=== PATIENT | female | born 1980 | race Two or more races ===

== ENCOUNTER 2023-05-20 07:16 | Outpatient (CLI) | payer OTHER | END 2023-05-20 07:18 | disposition home or self-care (01) | LOC: LAB 07:16 | DX: E16.2 Hypoglycemia, unspecified (principal) ==

== ENCOUNTER 2023-05-20 08:05 | Outpatient (CLI) | payer OTHER | END 2023-05-20 08:15 | disposition home or self-care (01) | LOC: SONOGRAMA 08:05 | PROVIDERS: ATTEND Obstetrics & Gynecology | DX: R10.13 Epigastric pain (principal) ==

== ENCOUNTER 2023-09-02 06:44 | Outpatient (CLI) | payer OTHER ==
[2023-09-02 08:00] LABS: HEMATOCRIT 42.1 % (36.0-45.00); MEAN CELL VOLUME 91.7 fL (80.00-100.00); MEAN CORPUSCULAR HEMOGLOBIN 30.6 pg (27.00-32.0); MEAN CORPUSCULAR HGB CONC 33.3 g/dl (32.0-36.0); PLATELET COUNT 254 K/uL (150-450); RED BLOOD COUNT 4.59 M/uL (4.00-6.00); RED CELL DISTRIBUTION WIDTH 12.5 % (11.5-14.5)
[2023-09-02 08:03] LABS: URINE APPEARANCE Clear; URINE BILIRRUBIN Negative (NEGATIVE); URINE BLOOD Negative; URINE COLOR Yellow; URINE GLUCOSE Negative (NEGATIVE); URINE LEUKOCYTE Negative; URINE NITRATE Negative; URINE PROTEIN Negative (NEGATIVE); URINE UROBILINOGEN 0.2 E.U./dl
[2023-09-02 08:04] LABS: URINE BACTERIA 11.3 uL (0.0-1933); URINE EPITHELIAL CELLS 1.9 uL (0.0-38.8); URINE RBC 4.4 uL (0.0-20.8)
[2023-09-02 08:22] LABS: INR 0.95; PARTIAL THROMBOPLASTIN TIME 27.1 SECONDS (22.0-34.0)
[2023-09-02 08:26] LABS: ALBUMIN 3.3 gm/dL (3.4-5.0); BILIRUBIN TOTAL 0.52 mg/dL (0.3-1.2); CALCIUM 9.3 mg/dL (8.5-10.1); CREATININE SERUM 0.74 mg/dL (0.55-1.02); GFR 86.92; GLOBULINA 3.5 G/DL (2.4-3.5); POTASSIUM 4.48 mEq/L (3.5-5.1); TOTAL PROTEIN 6.8 gm/dL (6.4-8.2); TSH 1.58 uIU/mL (0.358-3.74)
[2023-09-02 08:30] LABS: URINE WBC 0.9 uL (0.0-23.2)
[2023-09-02 10:11] LABS: RH POSITIVE
== END 2023-09-02 06:48 | disposition home or self-care (01) ==
LOC: LAB 06:44
PROVIDERS: ATTEND Obstetrics & Gynecology
DX: Z01.818 Encounter for other preprocedural examination (principal); N81.6 Rectocele; N81.10 Cystocele, unspecified; R35.1 Nocturia; N39.46 Mixed incontinence; R35.0 Frequency of micturition